=== PATIENT | male | born 1945 | race Caucasian/White ===

== ENCOUNTER 2018-01-16 14:53 | Emergency (ER) | payer MEDICARE, BC ==
[~2018-01-16] VITALS: Ht 165.1 cm; Wt 96.6 kg
--- NOTE | 2018-01-16 15:14 | NUR ---
PATIENT TO ED DT HIGH BLOOD PRESSURE-- CURRENT BP 155/83. OTHER VSS
[2018-01-16 15:21] LABS: BASOPHILS # (AUTO) 0.2 /CMM (0.0-0.2); BASOPHILS % (AUTO) 2.2 % (0.0-2.0); EOSINOPHILS % (AUTO) 1.6 % (0.0-6.0); HEMATOCRIT 35 % (39-51); HEMOGLOBIN 11.5 g/dL (13.5-17.5); LYMPHOCYTES # (AUTO) 5.4 /CMM (0.8-4.8); LYMPHOCYTES % (AUTO) 49.2 % (20.0-44.0); MEAN CORPUSCULAR HEMOGLOBIN 29 PG (26.0-33.0); MEAN CORPUSCULAR HGB CONC 33 g/dl (31.0-36.0); MEAN CORPUSCULAR VOLUME 86 fL (80-96); MONOCYTES # (AUTO) 0.5 /CMM (0.1-1.30); MONOCYTES % (AUTO) 4.7 % (2.0-12.0); NEUTROPHILS # (AUTO) 4.6 /CMM (1.8-8.9); NEUTROPHILS % (AUTO) 42.3 % (43.0-81.0); PLATELET COUNT (AUTO) 154 /CMM (150-450); RED BLOOD CELL COUNT(AUTO) 4.03 MIL/uL (4.5-6.0); WHITE BLOOD COUNT (AUTO) 10.9 K/uL (4.3-11.0)
[2018-01-16 15:28] LABS: CALCIUM, SERUM 8.8 mg/dL (8.5-10.1); CARBON DIOXIDE 28 mmol/L (21-32); CHLORIDE 103 mmol/L (98-107); GLUCOSE 124 mg/dL (74-106); POTASSIUM 3.7 mmol/L (3.5-5.1); SODIUM SERUM 139 mmol/L (136-145); UREA NITROGEN, BLOOD 26 mg/dL (7-18)
[2018-01-16 15:37] LABS: TROPONIN I < 0.017 ng/mL (0.00-0.056)
[2018-01-16 15:53] VITALS: BP 158/72
--- NOTE | 2018-01-16 15:53 | NUR ---
Patient discharged to home in stable condition. Written and verbal after care instructions given. Patient verbalizes understanding of instruction.
== END 2018-01-16 15:54 | disposition home or self-care (01) ==
LOC: ER 14:55
DX: F43.9 Reaction to severe stress, unspecified (principal); I10 Essential (primary) hypertension; K21.9 Gastro-esophageal reflux disease without esophagitis; E11.9 Type 2 diabetes mellitus without complications; M10.9 Gout, unspecified; I25.2 Old myocardial infarction; Z95.818 Presence of other cardiac implants and grafts
CPT/HCPCS: 36415; 80048-TC; 84484-TC; 85025-TC; A4606; Z7610